=== PATIENT | male | born 2000 | race Asian ===

== ENCOUNTER 2019-07-30 00:32 | Emergency (ER) | payer BC ==
[~2019-07-30] VITALS: Ht 172.7 cm; Wt 68.0 kg
[2019-07-30] MEDS ORDERED: HYDROCODONE/APAP 10-325 MG TABLET PO ONE (01:00)
[2019-07-30] MEDS ORDERED: HYDROCODONE/APAP 10-325 MG TABLET ONE (01:02)
--- NOTE | 2019-07-30 01:08 | NUR ---
Patient discharged to home in stable conditon. Written and verbal after care instructions given. Patient verbalizes understanding of instructions. Pt walked out of ER in stable condition with friend who will drive pt home. Pt appears in no distress. Shoulder immobilizer placed to right shoulder.
[2019-07-30 01:11] VITALS: BP 122/68
== END 2019-07-30 01:11 | disposition home or self-care (01) ==
LOC: ER 00:38
DX: M25.511 Pain in right shoulder (principal)
CPT/HCPCS: 73030; A4663